=== PATIENT | female | born 1980 | race Two or more races ===

== ENCOUNTER 2017-04-20 06:30 | Inpatient (IN) | payer SELFPAY ==
[2017-04-20] MEDS ORDERED: D5LR 1L W PITOCIN 10 UNITS/L 10 UNITS/1,000 ML BAG IV ONE (06:32)
[2017-04-20] MEDS ORDERED: LR 1000 ML IV 1,000 ML IV ONE (06:32)
[2017-04-20] MEDS ORDERED: PHENERGAN INJ 25 MG IV PRN ×2 (06:33→13:11)
[2017-04-20] MEDS ORDERED: D5LR 1L W PITOCIN 10 UNITS/L 10 UNITS/1,000 ML BAG IV PRN (06:33)
[2017-04-20] MEDS ORDERED: REGLAN INJ 10 MG VIAL IVP PRN (06:33)
[2017-04-20] MEDS ORDERED: NUBAIN INJ 200 MG VIAL MULTIDOSE IVP PRN (06:33)
[2017-04-20] MEDS ORDERED: PITOCIN ONE (06:33)
[2017-04-20] MEDS ORDERED: D5 1/2 NS 1L W PITOCIN 20 UNITS/L 20 UNITS/1,000 ML BAG IV ONE (06:33)
[2017-04-20] MEDS ORDERED: PITOCIN IVP ONE (06:33)
[2017-04-20] MEDS ORDERED: D5 1/2 NS 1000 ML 1,000 ML IV SCH (07:00)
[2017-04-20 07:04] LABS: BASOPHILS # (AUTO) 0.1 X10^3/uL (0.0-0.1); BASOPHILS % (AUTO) 0.8 % (0.2-1.0); EOSINOPHILS # (AUTO) 0.1 x10^3/uL (0.0-0.2); EOSINOPHILS % (AUTO) 0.6 % (0.9-2.9); HEMATOCRIT 34.7 % (36.0-47.0); HEMOGLOBIN 11.1 g/dL (12.0-16.0); LYMPHOCYTES # (AUTO) 2.7 X10^3/uL (1.3-2.9); LYMPHOCYTES % (AUTO) 24.6 % (21.0-51.0); MEAN CORPUSCULAR HEMOGLOBIN 24.4 pg (27.0-34.0); MEAN CORPUSCULAR VOLUME 76.3 fL (80.0-100.0); MEAN PLATELET VOLUME 9.8 fL (7.4-11.0); MONOCYTES # (AUTO) 0.5 x10^3/uL (0.3-0.8); MONOCYTES % (AUTO) 4.9 % (0.0-13.0); NEUTROPHILS # (AUTO) 7.7 x10^3/uL (2.2-4.8); NEUTROPHILS % (AUTO) 69.1 % (42.0-75.0); PLATELET COUNT 242 X10^3/uL (150.0-450.0); RED BLOOD COUNT 4.55 X10^6/uL (3.5-5.4); RED CELL DISTRIBUTION WIDTH 15.4 % (11.6-16.5); WHITE BLOOD COUNT 11.1 X10^3/uL (3.6-10.0)
[2017-04-20 07:10] LABS: BLOOD UREA NITROGEN 5 mg/dL (7-18); CALCIUM 9.6 mg/dL (8.5-10.1); CARBON DIOXIDE 22.5 mmol/L (21-32); CHLORIDE 103 mmol/L (98-107); CREATININE 0.54 mg/dL (0.55-1.02); SODIUM 138 mmol/L (136-145); eGFR BLACK RACES > 60 (>60); eGFR NON BLACK RACES > 60 (>60)
[2017-04-20 07:25] LABS: BILIRUBIN,URINE NEGATIVE (NEGATIVE); BLOOD/HEMOGLOBIN,URINE NEGATIVE (NEGATIVE); GLUCOSE, URINE NEGATIVE (NEGATIVE); KETONES,URINE NEGATIVE (NEGATIVE); LEUKOCYTE ESTERASE ,URINE 3+ (NEGATIVE); NITRITES,URINE NEGATIVE (NEGATIVE); PROTEIN,URINE NEGATIVE (NEGATIVE); UROBILINOGEN,URINE NORMAL (NORMAL)
[2017-04-20 07:32] LABS: PLATELET MORPHOLOGY COMMENT NORMAL (NORMAL)
[2017-04-20 07:34] LABS: APPEARANCE,URINE SLIGHTLY HAZY (CLEAR); COLOR,URINE YELLOW (YELLOW); RBC,URINE 0-3 /HPF (NEGATIVE); SQUAMOUS EPITHELIAL CELL,UR MODERATE /HPF (NEGATIVE)
[2017-04-20 07:35] LABS: BACTERIA,URINE TRACE /HPF (NEGATIVE)
[2017-04-20] MEDS ORDERED: LR 1000 ML IV 1,000 ML IV SCH (08:00)
[2017-04-20] MEDS ORDERED: NAROPIN EPIDURAL 0.2% + FENTANYL 90MCG 60 ML EPI ONE (11:17)
[2017-04-20] MEDS ORDERED: FENTANYL INJ 100 mcg ONE (11:17)
[2017-04-20] MEDS ORDERED: ADACEL TDaP IM ONE (13:15)
[2017-04-20] MEDS ORDERED: MILK OF MAGNESIA PO PRN (13:15)
[2017-04-20] MEDS ORDERED: DERMOPLAST SPRAY TOP PRN (13:15)
[2017-04-20] MEDS ORDERED: AMBIEN PO PRN (13:15)
[2017-04-20] MEDS ORDERED: HYPERRHO S/D (or RHOGAM) IM PRN (13:15)
[2017-04-20] MEDS: D5 1/2 NS 1000 ML 1,000 ML with PITOCIN 20 UNITS IV SCH ×2 (15:19)
[2017-04-20] MEDS: MOTRIN TAB 800 MG PO PRN (20:25)
[2017-04-20] MEDS: ZANTAC PO SCH (20:25)
[2017-04-21] MEDS: D5 1/2 NS 1000 ML 1,000 ML with PITOCIN 20 UNITS IV SCH ×6 (01:49→14:12)
[2017-04-21 05:11] LABS: HEMATOCRIT 26.3 % (36.0-47.0); HEMOGLOBIN 8.5 g/dL (12.0-16.0)
[2017-04-21] MEDS: ZANTAC PO SCH (08:15)
[2017-04-21] MEDS: MOTRIN TAB 800 MG PO PRN (08:15)
[2017-04-21] MEDS ORDERED: PRENATAL PLUS PO SCH (09:00)
[2017-04-21] MEDS ORDERED: NS 100 ML IV 100 ML with VENOFER 400 MG IV NR ×2 (10:00)
[2017-04-21 14:25] VITALS: BP 102/55
== END 2017-04-21 16:30 | disposition home or self-care (01) | DRG 775 ==
LOC: LD 06:30 → MED/SURG 13:53
PROVIDERS: ADMIT Obstetrics & Gynecology Obstetrics; ATTEND Obstetrics & Gynecology Obstetrics
PROC: 10E0XZZ Delivery of Products of Conception, External Approach (ICD-10-PCS; principal; 2017-04-20)
PROC: 0KQM0ZZ Repair Perineum Muscle, Open Approach (ICD-10-PCS; 2017-04-20)
PROC: 10907ZC Drainage of Amniotic Fluid, Therapeutic from Products of Conception, Via Natural or Artificial Opening (ICD-10-PCS; 2017-04-20)
PROC: 3E033VJ Introduction of Other Hormone into Peripheral Vein, Percutaneous Approach (ICD-10-PCS; 2017-04-20)
PROC: 3E0334Z Introduction of Serum, Toxoid and Vaccine into Peripheral Vein, Percutaneous Approach (ICD-10-PCS; 2017-04-20)
PROC: 00HU33Z Insertion of Infusion Device into Spinal Canal, Percutaneous Approach (ICD-10-PCS; 2017-04-20)
PROC: 3E0234Z Introduction of Serum, Toxoid and Vaccine into Muscle, Percutaneous Approach (ICD-10-PCS; 2017-04-21)
DX: O36.0930 Maternal care for other rhesus isoimmunization, third trimester, not applicable or unspecified (principal); Z37.0 Single live birth; O09.513 Supervision of elderly primigravida, third trimester; O70.1 Second degree perineal laceration during delivery; Z87.898 Personal history of other specified conditions; Z3A.40 40 weeks gestation of pregnancy; Z23 Encounter for immunization
CPT/HCPCS: 09167; 36415; 59409; 80048; 81001; 85014; 85018; 85025; 85461; 86592; 86850; 86900; 86901; 87086; A4216; A4222; S0197; J2590; J2790; J3010; J7042; J7120